=== PATIENT | female | born 1990 | race Caucasian/White ===

== ENCOUNTER 2016-12-20 14:08 | Emergency (ER) | payer OTHER, MEDICAID ==
[2016-12-20 14:15] VITALS: TEMP 98.8
--- NOTE | 2016-12-20 16:20 | EDPHY ---
H & P Smoking Status: Never smoked Time Seen by Provider: 12/20/16 15:06 HPI/ROS: CHIEF COMPLAINT: Right rib pain HISTORY OF PRESENT ILLNESS: 26-year-old female presents to the emergency department with right upper rib pain. Patient states that she has had cold symptoms for the last 2-3 weeks which are improving. She was at work today and grabbed the counter on her desk to pull herself in close while she was sitting on a chair and felt pain in the right upper chest wall. She has pain with deep breathing. She does not feel short of breath. She denies any other symptoms. No other injuries. She has had rib associated injuries with violent coughing episodes in the past. REVIEW OF SYSTEMS: Constitutional: No fever, no chills. Eyes: No double or blurry vision. ENT: No sore throat. Respiratory: Chest wall pain as above. No cough, no shortness of breath. Cardiac: No chest pain. Gastrointestinal: No abdominal pain, vomiting or diarrhea. Genitourinary: No dysuria. Musculoskeletal: No neck or back pain. Skin: No rashes. Neurological: No headache. (Mary Alston) Past Medical/Surgical History: Negative (Mary Alston) Social History: Single. Recently moved here from [place] (Mary Alston) Physical Exam: General Appearance: Alert, no distress. No respiratory distress. Eyes: Pupils equal and round. Extraocular motions are all intact. ENT: Mouth: Mucous membranes moist. Respiratory: No wheezing, rhonchi, or rales, lungs are clear to auscultation. Reproducible pain with palpation to the right anterior lateral chest wall in the mid axillary line around rib 4 and 5. No palpable crepitus or other bony abnormality. Cardiovascular: Regular rate and rhythm. Gastrointestinal: Abdomen is soft and nontender, no masses, no rebound or guarding, bowel sounds normal. Neurological: Alert and oriented x 3, cranial nerves II through XII grossly intact Skin: Warm and dry, no rashes. Musculoskeletal: Nontender to palpate along the cervical, thoracic or lumbar spine. Neck is supple. Extremities: Full range of motion and no peripheral edema. Psychiatric: Patient is oriented X 3, there is no agitation. (Mary Alston) Constitutional: Initial Vital Signs Temperature (C) 37.1 C 12/20/16 14:12 Heart Rate 76 12/20/16 14:12 Respiratory Rate 16 12/20/16 14:12 Blood Pressure 127/88 H 12/20/16 14:12 O2 Sat (%) 96 12/20/16 14:12 O2 Delivery Mode Room Air Allergies/Adverse Reactions: Sulfa (Sulfonamide Antibiotics) Allergy (Verified 09/18/14 13:14) Home Medications: Medication Instructions Recorded Bcp 12/20/16 GABAPENTIN 12/20/16 Prozac 12/20/16 Wellbutrin 12/20/16 Medical Decision Making - Diagnostics Imaging: I viewed and interpreted images myself ED Course/Re-evaluation: 26-year-old female presents to the emergency department with right upper chest wall pain. Pain is reproducible with palpation. Chest x-ray reveals no evidence of pneumothorax or any obvious displaced rib fractures. Patient was given primary care referral. She will return if she develops shortness of breath, increasing or change in symptoms or if she feels worse in any way. Patient was also given primary care referral since she is new to the [facility]. (Mary Alston) The patient was evaluated and managed by the physician coding assistant. I have reviewed this chart and I agree with the findings and plan of care as documented , as indicated by my signature. I am the secondary supervising physician. ( Linda Suazo) Differential Diagnosis: Including but not limited to pneumothorax, chest wall contusion, costochondritis (Mary Alston) Departure - Departure Disposition: Home, Routine, Self-Care Clinical Impression: Rib pain on right side Condition: Good Instructions: Chest Wall Pain (ED) Additional Instructions: Ibuprofen 600 mg every 8 hours as needed for pain. Deep breaths. Return to the emergency department if you feel short of breath or if you develop increasing pain or if her symptoms change. Referrals: Janey Landin DO [Doctor of Osteopathy] - 2-3 days, if not improved (Primary care provider payroll professional)
[2016-12-20 16:31] VITALS: BP 128/64; PULSE 80; RESP 14; O2SAT 97
== END 2016-12-20 16:29 | disposition home or self-care (01) ==
DX: R07.81 Pleurodynia (principal)